=== PATIENT | male | born 1955 | race Caucasian/White ===

== ENCOUNTER 2017-03-21 16:38 | Inpatient (IN) | payer OTHER ==
[2017-03-21 17:26] VITALS: BMI 23.8
--- NOTE | 2017-03-21 17:41 | HP ---
COWS - Scale Resting Pulse: 0= [place] 80 or Below Sweatin=Flushed/Facial Moisture Restless Observation: 3= Extraneous Movement Pupil Size: 0= Normal to Room Light Bone or Joint Aches: 4=Acute Joint/Muscle Pain Runny Nose/ Eye Tearin= Nasal Congestion GI Upset > 30mins: 1= Stomach Cramp Tremor Observation: 2= Slight Tremor Visible Yawning Observation: 0= None Anxiety or Irritability: 4=Extreme Anxiety Goose Flesh Skin: 0=Smooth Skin COWS Score: 17 Admission [facility] Chief Complaint: Heroin withdrawal Allergies/Adverse Reactions: Allergies Allergy/AdvReac Type Severity Reaction Status Date / Time No Known Allergies Allergy Verified 03/21/17 17:37 History of Present Illness: 61 years old male with a long hx of heroin and cocaine dependence is admitted for detox. Patient denies previous detox and reports 7 years of sobriety. Exam Limitations: No Limitations - Ebola screening Have you traveled outside of the country in the last 21 days: No Have you had contact with anyone from an Ebola affected area: No Have you been sick,other than usual withdrawal symptoms: No Do you have a fever: No - Review of Systems Constitutional: Chills, Night Sweats, Changes in sleep, Other (Fatigue) EENT: reports: Hearing Loss (right ear), Nose Congestion, Sinus Pressure, Other Respiratory: reports: No Symptoms reported Cardiac: reports: No Symptoms Reported GI: reports: Poor Fluid Intake, Abdominal cramping : reports: Other (penile tatoo) Musculoskeletal: reports: Joint Pain, Muscle Pain, Muscle Weakness, Joint Stiffness Integumentary: reports: Flushing, Other (tatoo to right hand (2), left thigh (1 ) and upper back) Endocrine: reports: Flushing Hematology: reports: No Symptoms Reported Psychiatric: reports: Orientated x3, Anxious, Depressed Other Systems: Reviewed and Negative Patient History - Patient Medical History Hx Anemia: No Hx Asthma: No Hx Chronic Obstructive Pulmonary Disease (COPD): No Hx Cancer: No Hx Cardiac Disorders: No Hx Congestive Heart Failure: No Hx Hypertension: Yes (not on meds) Hx Hypercholesterolemia: Yes (not on meds) HX Cerebrovascular Accident: No Hx Seizures: No Hx Dementia: No Hx Diabetes: No Hx Gastrointestinal Disorders: Yes (GERD) Hx Liver Disease: No Hx Genitourinary Disorders: No Hx Sexually Transmitted Disorders: Yes (SYPHLLIS- TREATED 1975) Hx Renal Disease (ESRD): No Hx Thyroid Disease: No Hx Human Immunodeficiency Virus (HIV): No (NEGATIVE 2016. Reports is HIV positive.) Hx Hepatitis C: No Hx Depression: Yes (Not on meds) Hx Suicide Attempt: No Hx Bipolar Disorder: No Hx Schizophrenia: No - Patient Surgical History Past Surgical History: Yes Hx Neurologic Surgery: No Hx Cataract Extraction: No Hx Cardiac Surgery: No Hx Lung Surgery: No Hx Abdominal Surgery: Yes (Hernia repair about 1980) Hx Appendectomy: No Hx Cholecystectomy: No Hx Genitourinary Surgery: No Hx Orthopedic Surgery: No Anesthesia Reaction: No - PPD History Previous Implant?: No (H/O TB- Treated) Implanted On Prior [facility] Admission?: No PPD to be Administered?: No - Smoking Cessation Smoking history: Current every day smoker Have you smoked in the past 12 months: Yes Aproximately how many cigarettes per day: 8 Hx Chewing Tobacco Use: No Initiated information on smoking cessation: Yes 'Breaking Loose' booklet given: 03/21/17 - Substance & Tx. History Hx Alcohol Use: No Hx Substance Use: Yes (Heroin, Cocaine) Substance Use Type: Cocaine, Heroin Hx Substance Use Treatment: No (Denies previous treatment) - Substances Abused Heroin Route: Inhalation Frequency: Daily Amount used: 3 bags- ($20) Age of first use: 17 Date of Last Use: 03/21/17 Cocaine Route: Inhalation Frequency: 3-6 times per week Amount used: 2 bags Age of first use: 17 Date of Last Use: 03/20/17 Family Disease History - Family Disease History Family Disease History: Diabetes: Sister, Other: Father (Alzheimer's - ) , Mother (), Brother (Alzheimer's disease) Admission Physical Exam S - Vital Signs Vital Signs: Vital Signs - 24 hr 03/21/17 17:23 Temperature 96.8 F L Pulse Rate 76 Respiratory 20 Rate Blood Pressure 108/71 - Physical General Appearance: Yes: Moderate Distress, Tremorous, Irritable, Anxious HEENTM: Yes: Normal Voice, LORI, Hearing Decreased (right ear hearing deficit) Respiratory: Yes: Lungs Clear, Normal Breath Sounds, No Respiratory Distress Neck: Yes: Supple Breast: Yes: Breast Exam Deferred Cardiology: Yes: Regular Rhythm, Regular Rate, S1, S2 Abdominal: Yes: Normal Bowel Sounds, Non Tender, Soft Genitourinary: Yes: Within Normal Limits Back: Yes: Normal Inspection Musculoskeletal: Yes: Joint Stiffness, Muscle Pain, Muscle weakness Extremities: Yes: Tremors Neurological: Yes: Fully Oriented, Alert, Normal Response Integumentary: Yes: Dry, Warm Lymphatic: Yes: Within Normal Limits - Diagnostic (1) Opioid dependence with withdrawal Current Visit: Yes Status: Acute (2) Cocaine dependence, uncomplicated Current Visit: Yes Status: Acute (3) Nicotine dependence Current Visit: Yes Status: Acute (4) Hypertension Current Visit: Yes Status: Chronic Cleared for Admission [facility] - Detox or Rehab [facility] Level of Care: Medically Managed [facility] Breath Alcohol Content Breath Alcohol Content: 0 Urine Drug Screen - Results Drug Screen Negative: No Urine Drug Screen Results: CLARA-Cocaine, OPI-Opiates
[2017-03-21] MEDS ORDERED: METHADONE HCL 10 MG TABLET (FOR DETOX USE ONLY) PO ONE ×2 (18:17→23:00)
[2017-03-21] MEDS ORDERED: MAGNESIUM HYDROX 2400MG/30ML ORAL SUSPENSION 30 ML CUP PO PRN (18:17)
[2017-03-21] MEDS ORDERED: MAGNESIUM CITRATE 300 ML BOTTLE PO PRN (18:17)
[2017-03-21] MEDS ORDERED: P-EPHED 60MG/TRIPROLIDI 2.5MG TABLET PO PRN (18:17)
[2017-03-21] MEDS ORDERED: LOPERAMIDE HCL 2 MG CAPSULE PO PRN (18:17)
[2017-03-21] MEDS ORDERED: MAG HYDROX/AL HYDROX/SIMETH 30 ML UNIT-DOSE CUP PO PRN (18:17)
[2017-03-21] MEDS ORDERED: ACETAMINOPHEN 325 MG TABLET (FP) PO PRN (18:17)
[2017-03-21] MEDS ORDERED: NICOTINE POLACRILEX 2 MG GUM BC PRN (18:17)
[2017-03-21] MEDS ORDERED: IBUPROFEN 400 MG TABLET (FP) PO PRN (18:17)
[2017-03-21] MEDS ORDERED: guaiFENesin/D-METHORPHAN HB 10 ML UNIT-DOSE CUPS PO PRN (18:17)
[2017-03-21] MEDS ORDERED: MENTHOL/PHENOL 1 EACH UD MM PRN (18:17)
[2017-03-21] MEDS ORDERED: hydrOXYzine PAMOATE 50 MG CAPSULE (FP) PO PRN (18:17)
[2017-03-21] MEDS ORDERED: CYCLOBENZAPRINE HCL 5 MG TABLET PO SCH (19:15)
[2017-03-21] MEDS ORDERED: METHADONE HCL 10 MG TABLET (FOR DETOX USE ONLY) ONE (20:52)
[2017-03-21] MEDS: diazePAM 5 MG TABLET PO PRN (20:54)
[2017-03-21] MEDS ORDERED: CYCLOBENZAPRINE HCL 10 MG TABLET (FP) PO SCH (21:15)
[2017-03-21] MEDS: THIAMINE HCL 100 MG TABLET (FP) PO SCH (22:44)
[2017-03-21] MEDS: diphenhydrAMINE HCL 50 MG CAPSULE PO PRN (22:46)
[2017-03-21 23:27] LABS: URINE APPEARANCE CLOUDY; URINE BILIRUBIN NEGATIVE (NEGATIVE); URINE BLOOD NEGATIVE (NEGATIVE); URINE COLOR DKYELLOW; URINE GLUCOSE (UA) NEGATIVE (NEGATIVE); URINE KETONE TRACE (NEGATIVE); URINE NITRITE NEGATIVE (NEGATIVE); URINE PROTEIN NEGATIVE (NEGATIVE); URINE UROBILINOGEN NEGATIVE mg/dL (0.2-1.0)
--- NOTE | 2017-03-22 08:39 | CONSULT ---
[facility] Psychiatric Consult - Data Date of interview: 03/22/17 Admission source: [facility] Identifying data: This is 61 years o9ld male with no psychiatric hospitalization history intoxicated with: Opioids, Cocaine and Nicotine Substance Abuse History: - Smoking Cessation. Smoking history: Current every day smoker. Have you smoked in the past 12 months: Yes. Aproximately how many cigarettes per day: 8. Hx Chewing Tobacco Use: No. Initiated information on smoking cessation: Yes. 'Breaking Loose' booklet given: 03/21/17. - Substance & Tx. History. Hx Alcohol Use: No. Hx Substance Use: Yes (Heroin, Cocaine). Substance Use Type: Cocaine, Heroin. Hx Substance Use Treatment: No (Denies previous treatment). - Substances Abused. Heroin. Route: Inhalation. Frequency: Daily. Amount used: 3 bags- ($20). Age of first use: 17. Date of Last Use: 03/21/17. Cocaine. Route: Inhalation. Frequency: 3-6 times per week. Amount used: 2 bags. Age of first use: 17. Date of Last Use: 03/20/17 Medical History: HTN Psychiatric History: Denies past psychiatric history Physical/Sexual Abuse/Trauma History: Denies Additional Comment: Observation. Detox Unit Care Protocol Mental Status Exam - Mental Status Exam Alert and Oriented to: Person Cognitive Function: Fair Mood: Sad Affect: Flat Patient Behavior: Sedated Speech Pattern: Delayed Voice Loudness: Mildly Soft/Quiet Thought Process: Circumstantial Thought Disorder: Being Controlled Hallucinations: Denies Suicidal Ideation: Denies Homicidal Ideation: Denies Insight/Judgement: Fair Sleep: Difficulty falling asleep Appetite: Fair Muscle strength/Tone: Mild Hypotonicity Gait/Station: Shuffling Additional Comments: Observation. Detox Unit Care Protocol Psychiatric Findings - Problem List (Bruce 1, 2,3) (1) Cocaine dependence, uncomplicated Current Visit: Yes Status: Acute (2) Nicotine dependence Current Visit: Yes Status: Acute Qualifiers: Nicotine product type: cigarettes (3) Opioid dependence with withdrawal Current Visit: Yes Status: Acute (4) Drug-induced mood disorder Current Visit: Yes Status: Suspected - Initial Treatment Plan Initial Treatment Plan: Observation. Detox Unit Care Protocol
[2017-03-22] MEDS ORDERED: METHADONE HCL 10 MG TABLET (FOR DETOX USE ONLY) PO ONE (10:00)
[2017-03-22] MEDS ORDERED: CYCLOBENZAPRINE HCL 10 MG TABLET (FP) PO SCH (10:00)
[2017-03-22] MEDS: CYCLOBENZAPRINE HCL 5 MG TABLET PO SCH (10:03)
[2017-03-22] MEDS: PRENATAL VITAMINS W/ FOLIC ACID TABLET (FP) PO SCH (10:03)
[2017-03-22] MEDS: NICOTINE 14 MG/24 HOURS TOPICAL PATCH TD SCH (10:05)
[2017-03-22 10:47] LABS: MCH 28.1 pg (25.7-33.7); MCHC 33.1 g/dl (32.0-35.9); MEAN PLT VOLUME 6.7 fl (7.5-11.1); PLATELET COUNT 294 K/MM3 (134-434); RDW 14.7 % (11.9-15.9); WHITE BLOOD COUNT 5.1 K/mm3 (4.0-10.0)
[2017-03-22 10:53] LABS: ALBUMIN 3.1 g/dl (3.4-5.0); ANION GAP 4 (8-16); CALCIUM 8.4 mg/dL (8.5-10.1); CO2 29 mmol/L (21-32); GLUCOSE,RANDOM 95 mg/dL (74-106)
[2017-03-22 10:56] LABS: ALK PHOS 103 U/L (45-117); BILIRUBIN,TOTAL 0.3 mg/dL (0.2-1.0); CREATININE 0.9 mg/dL (0.7-1.3); SGOT/AST 13 U/L (15-37); SGPT/ALT 19 U/L (12-78); TOT PROT 5.8 g/dl (6.4-8.2)
[2017-03-22 11:07] LABS: URINE LEUK ESTERASE Negative (NEGATIVE)
[2017-03-22 11:12] LABS: SICKLE CELL SCREEN NEGATIVE (NEGATIVE)
[2017-03-22 11:50] LABS: HIV 1 & 2 AB NEGATIVE; HIV 1 AGp24 NEGATIVE
[2017-03-22] MEDS ORDERED: PNEUMOC 13-VAL CONJ-DIP CRM/PF 0.5 ML DISP.SYRIN IM ONE (12:00)
[2017-03-22] MEDS ORDERED: PNEUMOCOCCAL 23 VACCINE 0.5 ML VIAL IM ONE (12:00)
--- NOTE | 2017-03-22 12:40 | PN ---
BHS COWS - Scale Resting Pulse: 0= [place] 80 or Below Sweatin= Chills/Flushing Restless Observation: 3= Extraneous Movement Pupil Size: 0= Normal to Room Light Bone or Joint Aches: 2= Severe Diffuse Aches Runny Nose/ Eye Tearin= Runny Nose/Eyes GI Upset > 30mins: 2= Nausea/Diarrhea Tremor Observation of Outstretched Hands: 2= Slight Tremor Visible Yawning Observation: 1= 1-2x During Session Anxiety or Irritability: 2=Irritable/Anxious Goose Flesh Skin: 0=Smooth Skin COWS Score: 15 BHS Progress Note (SOAP) Subjective: Sweating, chills, tremor, anxious Objective: 03/22/17 12:37 Last Vital Signs Temp Pulse Resp BP Pulse Ox 97.7 F 63 18 131/68 03/22/17 09:17 03/22/17 09:17 03/22/17 09:17 03/22/17 09:17 Laboratory Tests 03/21/17 03/22/17 03/22/17 23:10 07:20 07:20 WBC 5.1 RBC 4.70 Hgb 13.2 Hct 40.0 MCV 85.0 MCH 28.1 MCHC 33.1 RDW 14.7 Plt Count 294 MPV 6.7 L Sickle Cell Screen Negative Sodium 142 Potassium 4.1 Chloride 109 H Carbon Dioxide 29 Anion Gap 4 L BUN 25 H Creatinine 0.9 Creat Clearance w eGFR > 60 Random Glucose 95 Calcium 8.4 L Total Bilirubin 0.3 AST 13 L ALT 19 Alkaline Phosphatase 103 Total Protein 5.8 L Albumin 3.1 L Urine Color Dkyellow Urine Appearance Cloudy Urine pH 5.0 Ur Specific [employer] >= 1.030 H Urine Protein Negative Urine Glucose (UA) Negative Urine Ketones Trace H Urine Blood Negative Urine Nitrite Negative Urine Bilirubin Negative Urine Urobilinogen Negative Ur Leukocyte Esterase Negative RPR Titer HIV 1&2 Antibody Screen HIV P24 Antigen 03/22/17 03/22/17 07:20 07:20 WBC RBC Hgb Hct MCV MCH MCHC RDW Plt Count MPV Sickle Cell Screen Sodium Potassium Chloride Carbon Dioxide Anion Gap BUN Creatinine Creat Clearance w eGFR Random Glucose Calcium Total Bilirubin AST ALT Alkaline Phosphatase Total Protein Albumin Urine Color Urine Appearance Urine pH Ur Specific [employer] Urine Protein Urine Glucose (UA) Urine Ketones Urine Blood Urine Nitrite Urine Bilirubin Urine Urobilinogen Ur Leukocyte Esterase RPR Titer Nonreactive HIV 1&2 Antibody Screen Negative HIV P24 Antigen Negative Labs noted: bun 25 Assessment: 03/22/17 12:39 Withdrawal symptoms Noted with azotemia Plan: Continue detox Azotemia: encouraged to drink lots of water
--- NOTE | 2017-03-22 13:07 | EKG ---
Test Reason : Blood Pressure : / mmHG Vent. Rate : 065 BPM Atrial Rate : 065 BPM P-R Int : 134 ms QRS Dur : 084 ms QT Int : 410 ms P-R-T Axes : 043 036 053 degrees QTc Int : 426 ms NORMAL SINUS RHYTHM NORMAL ECG NO PREVIOUS ECGS AVAILABLE Confirmed by STEPHIE HENDERSON MD ([id number]) on 03/22/2017 1:06:48 PM Referred By: Confirmed By:STEPHIE HENDERSON MD
[2017-03-22] MEDS: THIAMINE HCL 100 MG TABLET (FP) PO SCH (22:40)
[2017-03-22] MEDS: diazePAM 5 MG TABLET PO PRN (22:40)
[2017-03-23] MEDS ORDERED: METHADONE HCL 5 MG TABLET (FOR DETOX USE ONLY) PO ONE (10:00)
[2017-03-23] MEDS: CYCLOBENZAPRINE HCL 5 MG TABLET PO SCH (10:26)
[2017-03-23] MEDS: PRENATAL VITAMINS W/ FOLIC ACID TABLET (FP) PO SCH (10:26)
[2017-03-23] MEDS: NICOTINE 14 MG/24 HOURS TOPICAL PATCH TD SCH (10:27)
--- NOTE | 2017-03-23 12:39 | PN ---
BHS COWS - Scale Resting Pulse: 1= [place] 81-100 Sweatin=Flushed/Facial Moisture Restless Observation: 1= Difficult to Sit Still Pupil Size: 0= Normal to Room Light Bone or Joint Aches: 1= Mild Discomfort Runny Nose/ Eye Tearin= Runny Nose/Eyes GI Upset > 30mins: 2= Nausea/Diarrhea Tremor Observation of Outstretched Hands: 2= Slight Tremor Visible Yawning Observation: 1= 1-2x During Session Anxiety or Irritability: 2=Irritable/Anxious Goose Flesh Skin: 0=Smooth Skin COWS Score: 14 BHS Progress Note (SOAP) Subjective: Anxiety,nausea,body aches,sweating,interrupted sleep,restless. Objective: 03/23/17 12:38 Last Vital Signs Temp Pulse Resp BP Pulse Ox 97.4 F L 89 18 99/66 03/23/17 11:13 03/23/17 11:13 03/23/17 11:13 03/23/17 11:13 Laboratory Tests 03/21/17 03/22/17 03/22/17 23:10 07:20 07:20 WBC 5.1 RBC 4.70 Hgb 13.2 Hct 40.0 MCV 85.0 MCH 28.1 MCHC 33.1 RDW 14.7 Plt Count 294 MPV 6.7 L Sickle Cell Screen Negative Sodium 142 Potassium 4.1 Chloride 109 H Carbon Dioxide 29 Anion Gap 4 L BUN 25 H Creatinine 0.9 Creat Clearance w eGFR > 60 Random Glucose 95 Calcium 8.4 L Total Bilirubin 0.3 AST 13 L ALT 19 Alkaline Phosphatase 103 Total Protein 5.8 L Albumin 3.1 L Urine Color Dkyellow Urine Appearance Cloudy Urine pH 5.0 Ur Specific [place] >= 1.030 H Urine Protein Negative Urine Glucose (UA) Negative Urine Ketones Trace H Urine Blood Negative Urine Nitrite Negative Urine Bilirubin Negative Urine Urobilinogen Negative Ur Leukocyte Esterase Negative RPR Titer HIV 1&2 Antibody Screen HIV P24 Antigen 03/22/17 03/22/17 07:20 07:20 WBC RBC Hgb Hct MCV MCH MCHC RDW Plt Count MPV Sickle Cell Screen Sodium Potassium Chloride Carbon Dioxide Anion Gap BUN Creatinine Creat Clearance w eGFR Random Glucose Calcium Total Bilirubin AST ALT Alkaline Phosphatase Total Protein Albumin Urine Color Urine Appearance Urine pH Ur Specific [place] Urine Protein Urine Glucose (UA) Urine Ketones Urine Blood Urine Nitrite Urine Bilirubin Urine Urobilinogen Ur Leukocyte Esterase RPR Titer Nonreactive HIV 1&2 Antibody Screen Negative HIV P24 Antigen Negative labs noted Assessment: 03/23/17 12:38 Withdrawal sx. Plan: Continue detox
[2017-03-23] MEDS: THIAMINE HCL 100 MG TABLET (FP) PO SCH (22:31)
[2017-03-23] MEDS: diazePAM 5 MG TABLET PO PRN (22:31)
[2017-03-23] MEDS: diphenhydrAMINE HCL 50 MG CAPSULE PO PRN (22:32)
[2017-03-24] MEDS ORDERED: METHADONE HCL 5 MG TABLET (FOR DETOX USE ONLY) PO ONE (10:00)
[2017-03-24] MEDS: NICOTINE 14 MG/24 HOURS TOPICAL PATCH TD SCH (10:39)
[2017-03-24] MEDS: diazePAM 5 MG TABLET PO PRN (10:39)
[2017-03-24] MEDS: PRENATAL VITAMINS W/ FOLIC ACID TABLET (FP) PO SCH (10:39)
[2017-03-24] MEDS: CYCLOBENZAPRINE HCL 5 MG TABLET PO SCH (10:39)
--- NOTE | 2017-03-24 12:35 | PN ---
BHS Progress Note (SOAP) Subjective: Sweating,interrupted sleep,restless Objective: 03/24/17 12:34 Vital Signs - 8 hr 03/24/17 03/24/17 06:00 09:52 Temperature 98.1 F 97.5 F L Pulse Rate 62 74 Respiratory 18 18 Rate Blood Pressure 121/73 111/69 Laboratory Tests 03/21/17 03/22/17 03/22/17 23:10 07:20 07:20 WBC 5.1 RBC 4.70 Hgb 13.2 Hct 40.0 MCV 85.0 MCH 28.1 MCHC 33.1 RDW 14.7 Plt Count 294 MPV 6.7 L Sickle Cell Screen Negative Sodium 142 Potassium 4.1 Chloride 109 H Carbon Dioxide 29 Anion Gap 4 L BUN 25 H Creatinine 0.9 Creat Clearance w eGFR > 60 Random Glucose 95 Calcium 8.4 L Total Bilirubin 0.3 AST 13 L ALT 19 Alkaline Phosphatase 103 Total Protein 5.8 L Albumin 3.1 L Urine Color Dkyellow Urine Appearance Cloudy Urine pH 5.0 Ur Specific [place] >= 1.030 H Urine Protein Negative Urine Glucose (UA) Negative Urine Ketones Trace H Urine Blood Negative Urine Nitrite Negative Urine Bilirubin Negative Urine Urobilinogen Negative Ur Leukocyte Esterase Negative RPR Titer HIV 1&2 Antibody Screen HIV P24 Antigen 03/22/17 03/22/17 07:20 07:20 WBC RBC Hgb Hct MCV MCH MCHC RDW Plt Count MPV Sickle Cell Screen Sodium Potassium Chloride Carbon Dioxide Anion Gap BUN Creatinine Creat Clearance w eGFR Random Glucose Calcium Total Bilirubin AST ALT Alkaline Phosphatase Total Protein Albumin Urine Color Urine Appearance Urine pH Ur Specific [place] Urine Protein Urine Glucose (UA) Urine Ketones Urine Blood Urine Nitrite Urine Bilirubin Urine Urobilinogen Ur Leukocyte Esterase RPR Titer Nonreactive HIV 1&2 Antibody Screen Negative HIV P24 Antigen Negative labs noted Assessment: 03/24/17 12:35 Withdrawal sx. Plan: Continue detox
[2017-03-24] MEDS: THIAMINE HCL 100 MG TABLET (FP) PO SCH (22:25)
[2017-03-24] MEDS: diphenhydrAMINE HCL 50 MG CAPSULE PO PRN (22:25)
[2017-03-25] MEDS ORDERED: METHADONE HCL 10 MG TABLET (FOR DETOX USE ONLY) PO ONE (10:00)
[2017-03-25] MEDS: CYCLOBENZAPRINE HCL 5 MG TABLET PO SCH (10:17)
[2017-03-25] MEDS: PRENATAL VITAMINS W/ FOLIC ACID TABLET (FP) PO SCH (10:17)
[2017-03-25] MEDS: NICOTINE 14 MG/24 HOURS TOPICAL PATCH TD SCH (10:18)
--- NOTE | 2017-03-25 15:29 | PN ---
BHS Progress Note (SOAP) Subjective: Sweating, nausea, anxious, interrupted sleep Objective: 03/25/17 15:26 Last Vital Signs Temp Pulse Resp BP Pulse Ox 97.4 F L 71 18 110/71 03/25/17 13:12 03/25/17 13:12 03/25/17 13:12 03/25/17 13:12 Laboratory Tests 03/21/17 03/22/17 03/22/17 23:10 07:20 07:20 WBC 5.1 RBC 4.70 Hgb 13.2 Hct 40.0 MCV 85.0 MCH 28.1 MCHC 33.1 RDW 14.7 Plt Count 294 MPV 6.7 L Sickle Cell Screen Negative Sodium 142 Potassium 4.1 Chloride 109 H Carbon Dioxide 29 Anion Gap 4 L BUN 25 H Creatinine 0.9 Creat Clearance w eGFR > 60 Random Glucose 95 Calcium 8.4 L Total Bilirubin 0.3 AST 13 L ALT 19 Alkaline Phosphatase 103 Total Protein 5.8 L Albumin 3.1 L Urine Color Dkyellow Urine Appearance Cloudy Urine pH 5.0 Ur Specific [place] >= 1.030 H Urine Protein Negative Urine Glucose (UA) Negative Urine Ketones Trace H Urine Blood Negative Urine Nitrite Negative Urine Bilirubin Negative Urine Urobilinogen Negative Ur Leukocyte Esterase Negative RPR Titer HIV 1&2 Antibody Screen HIV P24 Antigen 03/22/17 03/22/17 07:20 07:20 WBC RBC Hgb Hct MCV MCH MCHC RDW Plt Count MPV Sickle Cell Screen Sodium Potassium Chloride Carbon Dioxide Anion Gap BUN Creatinine Creat Clearance w eGFR Random Glucose Calcium Total Bilirubin AST ALT Alkaline Phosphatase Total Protein Albumin Urine Color Urine Appearance Urine pH Ur Specific [place] Urine Protein Urine Glucose (UA) Urine Ketones Urine Blood Urine Nitrite Urine Bilirubin Urine Urobilinogen Ur Leukocyte Esterase RPR Titer Nonreactive HIV 1&2 Antibody Screen Negative HIV P24 Antigen Negative Labs noted: bun 25 Assessment: 03/25/17 15:27 Withdrawal symptoms Noted with azotemia Plan: Continue detox Azotemia: encouraged to drink lots of water
[2017-03-25] MEDS: THIAMINE HCL 100 MG TABLET (FP) PO SCH (22:30)
[2017-03-25] MEDS: diphenhydrAMINE HCL 50 MG CAPSULE PO PRN (22:30)
[2017-03-26] MEDS ORDERED: METHADONE HCL 5 MG TABLET (FOR DETOX USE ONLY) PO ONE (06:00)
[2017-03-26 06:07] VITALS: BP 137/77; PULSE 70; TEMP 97.4
--- NOTE | 2017-03-26 08:40 | DS ---
[facility] Detox Discharge Summary Admission Date: 03/21/17 Discharge Date: 03/26/17 - History Present History: Cocaine Dependence, Opioid Dependence Additional Comments: ALERT O X 3. NAD. DETOX COMPLETED. PT STATES HAS HIS PMD AT [facility] AND WILL FOLLOW UP FOR MEDICAL MANAGEMENT WHEN AND NEEDED. Pertinent Past History: HTN - Physical Exam Results Vital Signs: Vital Signs Temperature 97.4 F L 03/26/17 06:06 Pulse Rate 70 03/26/17 06:06 Respiratory Rate 16 03/26/17 06:06 Blood Pressure 137/77 03/26/17 06:06 O2 Sat by Pulse Oximetry (%) Pertinent Admission Physical Exam Findings: WITHDRAWAL SX Laboratory Last Values WBC 5.1 K/mm3 (4.0-10.0) 03/22/17 07:20 RBC 4.70 M/mm3 (4.00-5.60) 03/22/17 07:20 Hgb 13.2 GM/dL (11.7-16.9) 03/22/17 07:20 Hct 40.0 % (35.4-49) 03/22/17 07:20 MCV 85.0 fl (80-96) 03/22/17 07:20 MCH 28.1 pg (25.7-33.7) 03/22/17 07:20 MCHC 33.1 g/dl (32.0-35.9) 03/22/17 07:20 RDW 14.7 % (11.9-15.9) 03/22/17 07:20 Plt Count 294 K/MM3 (134-434) 03/22/17 07:20 MPV 6.7 fl (7.5-11.1) L 03/22/17 07:20 Sickle Cell Screen Negative (NEGATIVE) 03/22/17 07:20 Sodium 142 mmol/L (136-145) 03/22/17 07:20 Potassium 4.1 mmol/L (3.5-5.1) 03/22/17 07:20 Chloride 109 mmol/L (98-107) H 03/22/17 07:20 Carbon Dioxide 29 mmol/L (21-32) 03/22/17 07:20 Anion Gap 4 (8-16) L 03/22/17 07:20 BUN 25 mg/dL (7-18) H 03/22/17 07:20 Creatinine 0.9 mg/dL (0.7-1.3) 03/22/17 07:20 Creat Clearance w eGFR > 60 (>60) 03/22/17 07:20 Random Glucose 95 mg/dL (74-106) 03/22/17 07:20 Calcium 8.4 mg/dL (8.5-10.1) L 03/22/17 07:20 Total Bilirubin 0.3 mg/dL (0.2-1.0) 03/22/17 07:20 AST 13 U/L (15-37) L 03/22/17 07:20 ALT 19 U/L (12-78) 03/22/17 07:20 Alkaline Phosphatase 103 U/L (45-117) 03/22/17 07:20 Total Protein 5.8 g/dl (6.4-8.2) L 03/22/17 07:20 Albumin 3.1 g/dl (3.4-5.0) L 03/22/17 07:20 Urine Color Dkyellow 03/21/17 23:10 Urine Appearance Cloudy 03/21/17 23:10 Urine pH 5.0 (5.0-8.0) 03/21/17 23:10 Ur Specific [place] >= 1.030 (1.005-1.025) H 03/21/17 23:10 Urine Protein Negative (NEGATIVE) 03/21/17 23:10 Urine Glucose (UA) Negative (NEGATIVE) 03/21/17 23:10 Urine Ketones Trace (NEGATIVE) H 03/21/17 23:10 Urine Blood Negative (NEGATIVE) 03/21/17 23:10 Urine Nitrite Negative (NEGATIVE) 03/21/17 23:10 Urine Bilirubin Negative (NEGATIVE) 03/21/17 23:10 Urine Urobilinogen Negative mg/dL (0.2-1.0) 03/21/17 23:10 Ur Leukocyte Esterase Negative (NEGATIVE) 03/21/17 23:10 RPR Titer Nonreactive (NONREACTIVE) 03/22/17 07:20 HIV 1&2 Antibody Screen Negative 03/22/17 07:20 HIV P24 Antigen Negative 03/22/17 07:20 - Treatment Hospital Course: Detox Protocol Followed, Detoxed Safely, Responded well, Discharged Condition Good - Medication Discharge Medications: Ambulatory Orders NK [No Known Home Medication] 03/21/17 - Diagnosis (1) Cocaine dependence, uncomplicated Status: Acute (2) Nicotine dependence Status: Acute Qualifiers: Nicotine product type: cigarettes Substance use status: in withdrawal Qualified Code(s): F17.213 - Nicotine dependence, cigarettes, with withdrawal; F17.213 - Nicotine dependence, cigarettes, with withdrawal (3) Opioid dependence with withdrawal Status: Acute (4) Hypertension Status: Chronic Qualifiers: Hypertension type: essential hypertension Qualified Code(s): I10 - Essential (primary) hypertension; I10 - Essential (primary) hypertension; I10 - Essential (primary) hypertension - AMA Did Patient Leave Against Medical Advice: No
== END 2017-03-26 09:22 | disposition home or self-care (01) | DRG 773 ==
LOC: YASAS 16:38 → Y3N 19:25
PROVIDERS: ADMIT Internal Medicine; ATTEND Internal Medicine
PROC: HZ2ZZZZ Detoxification Services for Substance Abuse Treatment (ICD-10-PCS; principal; 2017-03-21)
DX: F11.23 Opioid dependence with withdrawal (principal); F14.20 Cocaine dependence, uncomplicated; F17.213 Nicotine dependence, cigarettes, with withdrawal; F19.24 Other psychoactive substance dependence with psychoactive substance-induced mood disorder; I10 Essential (primary) hypertension; R79.89 Other specified abnormal findings of blood chemistry; K21.9 Gastro-esophageal reflux disease without esophagitis; Z87.438 Personal history of other diseases of male genital organs; Z59.0 Homelessness
CPT/HCPCS: 36415; 71020-TC; 80053; 81003; 85027; 85660; 86593; 87389; 93005; 93010